=== PATIENT | female | born 1945 | race Caucasian/White ===

== ENCOUNTER → 2020-03-21 | Outpatient (REF) | payer MEDICARE ==
[2020-03-21 18:17] LABS: BASO # 0.1 10^3/uL (0.0-0.2); BASO % 0.9 % (0.0-1.0); EOS # 0.2 10^3/uL (0.0-0.5); EOS % 2.3 % (0.0-3.0); HEMATOCRIT 43.8 % (36.0-47.0); HEMOGLOBIN 14.1 g/dl (12.0-15.5); LYMPH # 1.4 10^3/uL (1.5-5.0); LYMPH % 20.3 % (24.0-44.0); MEAN CORPUSCULAR HEMOGLOBIN 30.5 pg (27.0-33.0); MEAN CORPUSCULAR HGB CONC 32.2 g/dl (32.0-36.5); MEAN CORPUSCULAR VOLUME 94.8 fl (80.0-96.0); MONO # 0.5 10^3/uL (0.0-0.8); NEUTROPHILS # 4.9 10^3/uL (1.5-8.5); NEUTROPHILS % 69.2 % (36.0-66.0); PLATELET COUNT, AUTOMATED 212 10^3/uL (150-450); RED BLOOD COUNT 4.62 10^6/uL (4.00-5.40)
[2020-03-21 18:40] LABS: ALBUMIN 3.9 GM/DL (3.2-5.2); ALT/SGPT 39 U/L (12-78); BILIRUBIN,TOTAL 0.5 MG/DL (0.2-1.0); BLOOD UREA NITROGEN 8 MG/DL (7-18); CALCIUM LEVEL 9.8 MG/DL (8.8-10.2); CARBON DIOXIDE LEVEL 26 MEQ/L (21-32); CHLORIDE LEVEL 110 MEQ/L (98-107); CREATININE FOR GFR 0.59 MG/DL (0.55-1.30); GLOMERULAR FILTRATION RATE > 60.0 (>39); GLUCOSE, FASTING 90 MG/DL (70-100); POTASSIUM SERUM 4.1 MEQ/L (3.5-5.1); RHEUMATOID FACTOR QUANT < 10.0 IU/ML (<15.0); SODIUM LEVEL 143 MEQ/L (136-145); TOTAL PROTEIN 6.8 GM/DL (6.4-8.2)
[2020-03-21 19:03] LABS: ERYTHROCYTE SEDIMENTATION RATE 19 mm/hr (0-30)
== END ==
LOC: M LAB REF 17:12
PROVIDERS: ATTEND Internal Medicine Pulmonary Disease
DX: J84.9 Interstitial pulmonary disease, unspecified (principal)

== ENCOUNTER → 2020-03-30 | Outpatient (CLI) | payer MEDICARE, OTHER ==
--- NOTE | 2020-03-30 16:38 | REP ---
INDICATION: INTERSTITIAL LUNG DISEASE, CT PROTOCOL. COMPARISON: None TECHNIQUE: Standard helical noncontrast enhanced CT examination of the chest along with inspiratory and expiratory supine and prone high-resolution CT imaging of the lungs. FINDINGS: There is no gross mediastinal or hilar adenopathy. No pleural or pericardial effusions. The ascending aorta has a maximal AP dimension of 4 cm. The imaged upper abdomen is unremarkable. The imaged osseous structures are within normal limits. There is biapical pleuroparenchymal scarring. There are scattered diffuse septal opacities. Heavy asymmetric densities are seen in the lung bases and seen in conjunction with early honeycomb lung formation in the periphery. The appearance of this is unchanged whether supine or prone, however, expert 0 reviews show increased density consistent with crowding. There is evidence of mild cylindrical bronchiectasis throughout. There are no abnormal ground-glass opacities. No significant pulmonary nodules are identified, however, some could be obscured by the aforementioned asymmetric densities particularly in the lung bases. IMPRESSION: Chronic lung field changes as described above. <Electronically signed by Josef Davison > 03/30/20 [id number]
== END ==
LOC: M RAD 13:53
PROVIDERS: ATTEND Internal Medicine Pulmonary Disease
DX: J84.9 Interstitial pulmonary disease, unspecified (principal); R91.8 Other nonspecific abnormal finding of lung field

== ENCOUNTER → 2020-11-23 | Outpatient (REF) | payer MEDICARE, OTHER ==
[2020-11-23 16:02] LABS: BASO # 0.1 10^3/uL (0.0-0.2); BASO % 0.8 % (0.0-1.0); EOS # 0.2 10^3/uL (0.0-0.5); EOS % 2.9 % (0.0-3.0); LYMPH # 1.5 10^3/uL (1.5-5.0); LYMPH % 20.4 % (24.0-44.0); MEAN CORPUSCULAR HEMOGLOBIN 29.2 pg (27.0-33.0); MEAN CORPUSCULAR HGB CONC 31.3 g/dl (32.0-36.5); MEAN CORPUSCULAR VOLUME 93.4 fl (80.0-96.0); MONO # 0.6 10^3/uL (0.0-0.8); MONO % 8.1 % (2.0-8.0); NEUTROPHILS # 4.8 10^3/uL (1.5-8.5); NEUTROPHILS % 67.4 % (36.0-66.0); PLATELET COUNT, AUTOMATED 239 10^3/uL (150-450); RED BLOOD COUNT 5.14 10^6/uL (4.00-5.40); WHITE BLOOD COUNT 7.1 10^3/uL (4.0-10.0)
[2020-11-23 16:10] LABS: APPEARANCE, URINE CLEAR (CLEAR); BACTERIA, URINE AUTO NEGATIVE (NEGATIVE); BILIRUBIN, URINE AUTO NEGATIVE (NEGATIVE); BLOOD, URINE BLOOD NEGATIVE (NEGATIVE); COLOR, URINE STRAW (YELLOW); GLUCOSE, URINE (UA) AUTO NEGATIVE (NEGATIVE); KETONE, URINE AUTO NEGATIVE (NEGATIVE); LEUKOCYTE ESTERASE, URINE AUTO TRACE (NEGATIVE); NITRITE, URINE AUTO NEGATIVE (NEGATIVE); PROTEIN, URINE AUTO NEGATIVE (NEGATIVE); RBC, URINE AUTO 0 /HPF (0-3); SPECIFIC GRAVITY URINE AUTO 1.003 (1.002-1.035); SQUAMOUS EPITHELIAL CELL UR AU 1 /HPF (0-6); UROBILINOGEN, URINE AUTO 0.2 mg/dL (0.0-2.0); WBC, URINE AUTO 0 /HPF (0-3)
[2020-11-23 16:24] LABS: CREATININE,RANDOM URINE 17.5 MG/DL; TOTAL PROTEIN,RANDOM URINE < 5.0 MG/DL (0.0-12.0)
[2020-11-23 16:29] LABS: ALBUMIN 3.5 GM/DL (3.2-5.2); ALT/SGPT 30 U/L (12-78); BILIRUBIN,DIRECT 0.1 MG/DL (0.0-0.2); BILIRUBIN,TOTAL 0.5 MG/DL (0.2-1.0); BLOOD UREA NITROGEN 14 MG/DL (7-18); CALCIUM LEVEL 9.7 MG/DL (8.8-10.2); CARBON DIOXIDE LEVEL 28 MEQ/L (21-32); CHLORIDE LEVEL 107 MEQ/L (98-107); COMPLEMENT C3 120 MG/DL (90-180); COMPLEMENT C4 22 MG/DL (10-40); CPK CREATINE PHOSPHOKINASE 94 U/L (26-192); CREATININE FOR GFR 0.75 MG/DL (0.55-1.30); GLOMERULAR FILTRATION RATE > 60.0 (>39); GLUCOSE, FASTING 71 MG/DL (70-100); IRON (FE) 92 UG/DL (50-170); MAGNESIUM LEVEL 2.2 MG/DL (1.8-2.4); PHOSPHORUS LEVEL 3.6 MG/DL (2.5-4.9); POTASSIUM SERUM 4.5 MEQ/L (3.5-5.1); SODIUM LEVEL 139 MEQ/L (136-145); TOTAL PROTEIN 7.1 GM/DL (6.4-8.2)
[2020-11-23 16:57] LABS: VITAMIN B12 LEVEL > 2000 PG/ML (247-911)
[2020-11-23 17:34] LABS: ERYTHROCYTE SEDIMENTATION RATE 4 mm/hr (0-30)
[2020-11-24 11:52] LABS: DRVV SCREEN 37.8 SEC
== END ==
LOC: M SFHCRHEU 10:58
PROVIDERS: ATTEND Internal Medicine
DX: Z01.89 Encounter for other specified special examinations (principal); R76.8 Other specified abnormal immunological findings in serum; M79.10 Myalgia, unspecified site; Z79.899 Other long term (current) drug therapy

== ENCOUNTER → 2021-03-28 | Outpatient (REF) | payer MEDICARE, OTHER | LOC: M LAB REF 16:23 | PROVIDERS: ATTEND Otolaryngology | DX: K11.7 Disturbances of salivary secretion (principal) ==

== ENCOUNTER → 2021-04-02 | Outpatient (CLI) | payer MEDICARE, OTHER | LOC: M PLAIMG 13:42 | PROVIDERS: ATTEND Internal Medicine Pulmonary Disease | DX: J84.9 Interstitial pulmonary disease, unspecified (principal) ==

== ENCOUNTER → 2021-04-30 | Outpatient (REF) | payer MEDICARE, OTHER | LOC: M SFHCRHEU 13:13 | PROVIDERS: ATTEND Internal Medicine | DX: E67.8 Other specified hyperalimentation (principal) ==

== ENCOUNTER → 2021-10-11 | Outpatient (REF) | payer MEDICARE, OTHER ==
[2021-10-11 18:01] LABS: TOTAL 25(OH) VITAMIN D 59.4 NG/ML (30.0-100.0)
== END ==
LOC: M SFHCRHEU 13:39
PROVIDERS: ATTEND Internal Medicine
DX: E67.8 Other specified hyperalimentation (principal); M79.10 Myalgia, unspecified site

== ENCOUNTER → 2022-04-09 | Outpatient (REF) | payer MEDICARE, OTHER ==
[2022-04-09 16:58] LABS: C REACTIVE PROTEIN QUANTITATIV < 0.40 MG/DL (<1.0)
[2022-04-09 16:59] LABS: COMPLEMENT C3 129.9 MG/DL (90.0-170.0); COMPLEMENT C4 27.6 MG/DL (12-36)
[2022-04-09 17:00] LABS: TOTAL 25(OH) VITAMIN D 49.9 NG/ML (20.0-100.0); VITAMIN B12 LEVEL 602 PG/ML (211-911)
[2022-04-09 17:19] LABS: CREATININE,RANDOM URINE 32.4 MG/DL
[2022-04-09 17:20] LABS: TOTAL PROTEIN,RANDOM URINE < 6.0 MG/DL (0.0-14.0)
[2022-04-09 19:25] LABS: APPEARANCE, URINE MANUAL CLEAR (CLEAR); BILIRUBIN, URINE MANUAL NEGATIVE (NEGATIVE); COLOR, URINE MANUAL LT YELLOW (YELLOW); GLUCOSE, URINE (UA) MANUAL NEGATIVE (NEGATIVE); KETONE, URINE MANUAL NEGATIVE (NEGATIVE); NITRITE, URINE MANUAL NEGATIVE (NEGATIVE); PH,URINE MAN 5.5 UNITS (5.0 - 7.0); PROTEIN, URINE MANUAL NEGATIVE (NEGATIVE); UROBILINOGEN, URINE MANUAL NORMAL (NORMAL)
[2022-04-09 19:26] LABS: BLOOD URINE MANUAL NEGATIVE (NEGATIVE); LEUKOCYTE ESTERASE, URINE MAN NEGATIVE (NEGATIVE)
== END ==
LOC: M SFHCRHEU 13:09
PROVIDERS: ATTEND Internal Medicine
DX: E67.8 Other specified hyperalimentation (principal); M79.10 Myalgia, unspecified site; M25.48 Effusion, other site; R76.8 Other specified abnormal immunological findings in serum

== ENCOUNTER → 2022-05-02 | Outpatient (CLI) | payer MEDICARE, OTHER | LOC: M PLAIMG 12:01 | PROVIDERS: ATTEND Internal Medicine Pulmonary Disease | DX: J84.9 Interstitial pulmonary disease, unspecified (principal) ==

== ENCOUNTER → 2022-11-07 | Outpatient (CLI) | payer MEDICARE | LOC: M CARPUL 10:36 | PROVIDERS: ATTEND Internal Medicine Pulmonary Disease | DX: J84.9 Interstitial pulmonary disease, unspecified (principal) ==

== ENCOUNTER → 2023-12-29 | Outpatient (REF) | payer MEDICARE, OTHER | LOC: M SFHCDERM 08:07 | PROVIDERS: ATTEND Physician Assistant | DX: L82.0 Inflamed seborrheic keratosis (principal) ==

== ENCOUNTER → 2024-04-13 | Outpatient (REF) | payer MEDICARE, OTHER ==
[2024-04-13 17:42] LABS: APPEARANCE, URINE CLEAR (CLEAR); BACTERIA, URINE AUTO NEGATIVE (NEGATIVE); BILIRUBIN, URINE AUTO NEGATIVE (NEGATIVE); BLOOD, URINE BLOOD NEGATIVE (NEGATIVE); COLOR, URINE YELLOW (YELLOW); GLUCOSE, URINE (UA) AUTO NEGATIVE (NEGATIVE); KETONE, URINE AUTO NEGATIVE (NEGATIVE); LEUKOCYTE ESTERASE, URINE AUTO NEGATIVE (NEGATIVE); NITRITE, URINE AUTO NEGATIVE (NEGATIVE); PROTEIN, URINE AUTO NEGATIVE (NEGATIVE); RBC, URINE AUTO 0 /HPF (0-3); SPECIFIC GRAVITY URINE AUTO 1.006 (1.002-1.035); SQUAMOUS EPITHELIAL CELL UR AU 1 /HPF (0-6); UROBILINOGEN, URINE AUTO 0.2 mg/dL (0.0-2.0); WBC, URINE AUTO 1 /HPF (0-3)
[2024-04-13 18:07] LABS: BASO # 0.1 10^3/uL (0.0-0.2); BASO % 0.6 % (0.0-1.0); EOS # 0.1 10^3/uL (0.0-0.5); EOS % 1.1 % (0.0-3.0); HEMATOCRIT 51.2 % (36.0-47.0); HEMOGLOBIN 16.1 g/dl (12.0-15.5); LYMPH # 2.2 10^3/uL (1.5-5.0); LYMPH % 21.3 % (24.0-44.0); MEAN CORPUSCULAR HGB CONC 31.4 g/dl (32.0-36.5); MEAN CORPUSCULAR VOLUME 95.3 fl (80.0-96.0); MONO # 0.7 10^3/uL (0.0-0.8); MONO % 6.4 % (2.0-8.0); NEUTROPHILS # 7.3 10^3/uL (1.5-8.5); NEUTROPHILS % 70.1 % (36.0-66.0); PLATELET COUNT, AUTOMATED 285 10^3/uL (150-450); RED BLOOD COUNT 5.37 10^6/uL (4.00-5.40); WHITE BLOOD COUNT 10.4 10^3/uL (4.0-10.0)
[2024-04-13 18:26] LABS: ERYTHROCYTE SEDIMENTATION RATE 35 mm/hr (0-30)
[2024-04-13 18:29] LABS: CREATININE,RANDOM URINE 31.7 MG/DL
[2024-04-13 18:30] LABS: TOTAL PROTEIN,RANDOM URINE < 6.0 MG/DL (0.0-14.0)
[2024-04-13 18:49] LABS: C REACTIVE PROTEIN QUANTITATIV 1.02 MG/DL (<1.0); VITAMIN B12 LEVEL 409 PG/ML (211-911)
[2024-04-13 18:50] LABS: ALKALINE PHOSPHATASE 101 U/L (35-104); ALT/SGPT 29 U/L (7.0-40); AST/SGOT 28 U/L (<34); BILIRUBIN,DIRECT 0.2 MG/DL (<0.4); BILIRUBIN,TOTAL 0.7 MG/DL (0.3-1.2); BLOOD UREA NITROGEN 12 MG/DL (9-23); CALCIUM LEVEL 10.2 MG/DL (8.3-10.6); CARBON DIOXIDE LEVEL 26 MMOL/L (20-31); CHLORIDE LEVEL 106 MMOL/L (98-107); COMPLEMENT C3 146.8 MG/DL (90.0-170.0); COMPLEMENT C4 26.8 MG/DL (12-36); CREATININE FOR GFR 0.67 MG/DL (0.55-1.30); GLOMERULAR FILTRATION RATE > 60.0 (>39); GLUCOSE, FASTING 77 MG/DL (74-106); POTASSIUM SERUM 4.2 MMOL/L (3.5-5.1); SODIUM LEVEL 143 MMOL/L (136-145); TOTAL 25(OH) VITAMIN D 53.5 NG/ML (20.0-100.0); TOTAL PROTEIN 7.5 G/DL (5.7-8.2)
== END ==
LOC: M SFHCRHEU 12:00
PROVIDERS: ATTEND Internal Medicine
DX: M34.9 Systemic sclerosis, unspecified (principal); E55.9 Vitamin D deficiency, unspecified; E67.8 Other specified hyperalimentation

== ENCOUNTER → 2024-09-09 | Outpatient (CLI) | payer MEDICARE, OTHER ==
[~2024-09-09] MED LIST: AMLO2.5T3 PO; ASPI81CH33 PO; ATOR1TAB21; ATOR40TA75 PO; COQ150CH PO; GNP1000C11 PO; LATANOPROST; LOSA50TA28 PO; NOXI1TAB PO; VITA-243 PO
== END ==
LOC: M ONCR 14:45
PROVIDERS: ATTEND General Practice
DX: C21.0 Malignant neoplasm of anus, unspecified (principal); Z85.72 Personal history of non-Hodgkin lymphomas; Z92.21 Personal history of antineoplastic chemotherapy; Z92.3 Personal history of irradiation; Z86.16 Personal history of COVID-19; Z80.3 Family history of malignant neoplasm of breast; Z87.891 Personal history of nicotine dependence; Z79.899 Other long term (current) drug therapy

== ENCOUNTER → 2024-09-23 | Outpatient (CLI) | payer MEDICARE, OTHER ==
[~2024-09-23] VITALS: Ht 170.2 cm; Wt 63.6 kg
[~2024-09-23] MED LIST changes: -ATOR1TAB21; +ATOR1TAB21 PO; +ONDA-84 PO; +PROC10TA5 PO; +VITA100016 PO; +XALA0.007 OU
[2024-09-23 13:15] VITALS: TEMP 97.5
[2024-09-23] MEDS: ceFAZolin SODIUM 2 GM in DEXTROSE 5% (D5W) ADV/MINI-BAG 50 ML IV ONE (14:05)
[2024-09-23] MEDS: NS (Normal Saline) 0.9% 1,000 ML IV SCH (14:05)
[2024-09-23] MEDS: MIDAZOLAM INJ 2 MG/2 ML VIAL IV PRN (14:30)
[2024-09-23] MEDS: LIDOCAINE 1% MDV 20 ML VIAL SC SCH (15:01)
[2024-09-23 15:30] VITALS: BP 178/84; O2SAT 95
== END ==
LOC: M IRPRO 12:58
PROVIDERS: ATTEND General Practice
DX: C21.0 Malignant neoplasm of anus, unspecified (principal)
CPT/HCPCS: 36561; 99152; J0690; J1642; J2250; J3010

== ENCOUNTER → 2024-09-30 | Outpatient (RCR) | payer MEDICARE, OTHER ==
[~2024-09-30] MED LIST changes: +LIDO100S29 SSP
== END ==
LOC: M ONCR 09-21 10:06
PROVIDERS: ATTEND General Practice
DX: Z51.0 Encounter for antineoplastic radiation therapy (principal); C21.0 Malignant neoplasm of anus, unspecified

== ENCOUNTER 2024-10-29 11:43 | Outpatient (RCR) | payer MEDICARE, OTHER ==
[2024-11-02] MEDS ORDERED: LEVO1TAB40 PO (14:01)
[2024-11-02] MEDS ORDERED: OXYC-517 PO (14:02)
== END 2024-10-31 ==
LOC: M ONCR 11:43
PROVIDERS: ATTEND General Practice
DX: Z51.0 Encounter for antineoplastic radiation therapy (principal); C21.0 Malignant neoplasm of anus, unspecified

== ENCOUNTER 2024-11-10 12:44 | Outpatient (RCR) | payer MEDICARE, OTHER ==
[2024-11-02 14:41] LABS: AMORPHOUS SEDIMENT SMALL (NEGATIVE); APPEARANCE, URINE CLOUDY (CLEAR); BACTERIA, URINE AUTO 1+ (NEGATIVE); BILIRUBIN, URINE AUTO NEGATIVE (NEGATIVE); BLOOD, URINE BLOOD NEGATIVE (NEGATIVE); GLUCOSE, URINE (UA) AUTO NEGATIVE (NEGATIVE); KETONE, URINE AUTO NEGATIVE (NEGATIVE); LEUKOCYTE ESTERASE, URINE AUTO 3+ (NEGATIVE); MUCUS, URINE LARGE (NEGATIVE); NITRITE, URINE AUTO NEGATIVE (NEGATIVE); PROTEIN, URINE AUTO NEGATIVE (NEGATIVE); RBC, URINE AUTO 11 /HPF (0-3); SPECIFIC GRAVITY URINE AUTO 1.010 (1.002-1.035); SQUAMOUS EPITHELIAL CELL UR AU 0 /HPF (0-6); UROBILINOGEN, URINE AUTO 0.2 mg/dL (0.0-2.0); WBC, URINE AUTO 92 /HPF (0-3)
[2024-11-09 14:37] LABS: PLATELET COUNT, AUTOMATED 57 10^3/uL (150-450)
[~2024-11-10 12:44] MED LIST changes: +LEVO1TAB40 PO; +OXYC-517 PO
== END 2024-11-30 ==
LOC: M ONCR 12:44
PROVIDERS: ATTEND General Practice
DX: Z51.0 Encounter for antineoplastic radiation therapy (principal); C21.0 Malignant neoplasm of anus, unspecified

== ENCOUNTER → 2024-12-31 | Outpatient (CLI) | payer MEDICARE, OTHER | LOC: M ONCR 14:47 | PROVIDERS: ATTEND General Practice | DX: C21.0 Malignant neoplasm of anus, unspecified (principal); K64.9 Unspecified hemorrhoids ==

== ENCOUNTER → 2025-02-09 | Outpatient (CLI) | payer MEDICARE, OTHER ==
[~2025-02-09] MED LIST changes: +ASPE4PAD TOP; +ASPI81TA26 PO; +BENA25CA4 PO; +BENZ-18 PO; +CEFD300CAP PO; +CO Q50CA8 PO; +ELIQ5TAB PO; +FLON1SPR; +HYDR2.5C TOP; +ISOVUE-370 76% 100 ML VIAL As Ordered ONE; +LOSA25TA13 PO; +METO1TAB87 PO; +MUCI600T31 PO; +PRED50TA57 PO; +VALA1TAB5; +VENTAER INH
== END ==
LOC: M RAD 09:33
PROVIDERS: ATTEND General Practice
DX: C21.0 Malignant neoplasm of anus, unspecified (principal); R93.2 Abnormal findings on diagnostic imaging of liver and biliary tract
CPT/HCPCS: 74177; 82565; Q9967

== ENCOUNTER → 2025-02-10 | Outpatient (CLI) | payer MEDICARE, OTHER ==
[~2025-02-10] MED LIST changes: -ASPE4PAD TOP; -ASPI81TA26 PO; -BENZ-18 PO; -CEFD300CAP PO; -CO Q50CA8 PO; -ELIQ5TAB PO; -FLON1SPR; -HYDR2.5C TOP; -ISOVUE-370 76% 100 ML VIAL As Ordered ONE; -LOSA25TA13 PO; -METO1TAB87 PO; -MUCI600T31 PO; -VALA1TAB5; -VENTAER INH
== END ==
LOC: M ONCR 13:38
PROVIDERS: ATTEND General Practice
DX: R93.2 Abnormal findings on diagnostic imaging of liver and biliary tract (principal); I73.00 Raynaud's syndrome without gangrene; M34.9 Systemic sclerosis, unspecified; J84.112 Idiopathic pulmonary fibrosis

== ENCOUNTER 2025-02-18 11:54 | Inpatient (IN) | payer MEDICARE, OTHER ==
[~2025-02-18] VITALS: Ht 170.2 cm; Wt 56.6 kg
[2025-02-18] MEDS: HEPARIN LOCK FLUSH 100 UNITS/ML 3 ML SYRINGE IV ONE (12:25)
[2025-02-18] MEDS ORDERED: SODIUM CHLORIDE 0.9% INJ 10 ML SYR IV PRN (12:25)
[2025-02-18] MEDS: NS 500 ML IV ONE (13:06)
[2025-02-18 13:27] LABS: BASO # 0.1 10^3/uL (0.0-0.2); BASO % 0.4 % (0.0-1.0); EOS # 0.0 10^3/uL (0.0-0.5); EOS % 0.2 % (0.0-3.0); LYMPH # 0.5 10^3/uL (1.5-5.0); LYMPH % 3.6 % (24.0-44.0); MONO # 1.0 10^3/uL (0.0-0.8); MONO % 6.9 % (2.0-8.0); NEUTROPHILS # 12.2 10^3/uL (1.5-8.5); NEUTROPHILS % 87.2 % (36.0-66.0); PLATELET COUNT, AUTOMATED 299 10^3/uL (150-450)
[2025-02-18] MEDS: ACETAMINOPHEN 325 MG TAB PO ONE (13:32)
[2025-02-18] MEDS: diphenhydrAMINE 50 MG/ML VIAL IV STA (13:32)
[2025-02-18] MEDS: SODIUM CHLORIDE 0.9% INJ 10 ML SYR IV SCH (13:35)
[2025-02-18 13:43] LABS: ALT/SGPT 56 U/L (7.0-40); AST/SGOT 46 U/L (<34); CALCIUM LEVEL 8.8 MG/DL (8.3-10.6); CARBON DIOXIDE LEVEL 25 MMOL/L (20-31); CHLORIDE LEVEL 106 MMOL/L (98-107); CREATININE FOR GFR 0.54 MG/DL (0.55-1.30); GLOMERULAR FILTRATION RATE > 90.0 (>39); POTASSIUM SERUM 3.7 MMOL/L (3.5-5.1); SODIUM LEVEL 142 MMOL/L (136-145)
[2025-02-18 13:45] LABS: THYROXINE (T4) 7.7 UG/DL (4.5-10.9)
[2025-02-18] MEDS ORDERED: ISOVUE-370 76% 100 ML VIAL As Ordered ONE (14:17)
[2025-02-18] MEDS: METOPROLOL 5 MG/5 ML VIAL IV SCH (14:56)
[2025-02-18] MEDS: IBUPROFEN 600 MG TAB PO ONE (14:56)
[2025-02-18] MEDS: cefTRIAXone SOD 2 GM in DEXTROSE 5% (D5W) ADV/MINI-BAG 50 ML IV ONE (15:27)
[2025-02-18] MEDS ORDERED: VENTAER INH (15:42)
[2025-02-18] MEDS ORDERED: CO Q50CA8 PO (15:42)
[2025-02-18] MEDS ORDERED: ASPE4PAD TOP (15:42)
[2025-02-18] MEDS ORDERED: LOSA25TA13 PO (15:42)
[2025-02-18] MEDS ORDERED: ASPI81TA26 PO (15:42)
[2025-02-18] MEDS ORDERED: HOME MED LIST COMPLETE! XX SCH (15:45)
[2025-02-18] MEDS ORDERED: ONDANSETRON 4MG/2ML VIAL IV PRN (16:50)
[2025-02-18] MEDS: NS (Normal Saline) 0.9% 1,000 ML IV SCH (17:08)
[2025-02-18] MEDS: MIDAZOLAM INJ 2 MG/2 ML VIAL IV PRN (17:08)
[2025-02-18] MEDS: LIDOCAINE 1% MDV 20 ML VIAL SC SCH (17:08)
[2025-02-18] MEDS ORDERED: MORPHINE 2 MG/ML 1 ML VIAL IV PRN (17:30)
[2025-02-18] MEDS ORDERED: ALBUTEROL SULFATE 2.5 MG/0.5 ML INH CONCENTRATE NEB SOLN NEB PRN (17:30)
[2025-02-18] MEDS: AZITHROMYCIN INJ 500 MG, VIAL MATE ADAPTER 1 EACH in D5W 250 ML IV ONE (18:01)
[2025-02-18 20:23] VITALS: BP 108/70; TEMP 97.3; O2SAT 92
[2025-02-18] MEDS: CO-ENZYME Q10 50 MG CAP PO SCH (21:53)
[2025-02-18] MEDS: ASPIRIN 81 MG ENTERIC TABLET PO SCH (21:53)
[2025-02-18] MEDS: ASCORBIC ACID 500 MG TAB PO SCH (21:53)
[2025-02-18] MEDS: LOSARTAN 25 MG TAB PO SCH (21:54)
[2025-02-18] MEDS: ATORVASTATIN 20 MG TAB PO SCH (21:54)
[2025-02-18] MEDS: LATANOPROST 0.005% OPHTH SOLN 2.5 ML OU SCH (21:55)
[2025-02-18] MEDS: VITAMIN D 1,000 INTERNATIONAL UNITS TABLET PO SCH (22:00)
[2025-02-18 23:37] VITALS: BP 102/66; TEMP 98.2; O2SAT 93
[2025-02-19] VITALS (8 sets, daily range): BP systolic 106–148; BP diastolic 57–88; TEMP 97.5–98.5; O2SAT 90–94
[2025-02-19] MEDS: METOPROLOL 5 MG/5 ML VIAL IV PRN (05:07)
[2025-02-19 06:01] LABS: PLATELET COUNT, AUTOMATED 288 10^3/uL (150-450)
[2025-02-19 06:31] LABS: ALT/SGPT 41 U/L (7.0-40); AST/SGOT 23 U/L (<34); CALCIUM LEVEL 8.5 MG/DL (8.3-10.6); CARBON DIOXIDE LEVEL 24 MMOL/L (20-31); CHLORIDE LEVEL 110 MMOL/L (98-107); CREATININE FOR GFR 0.49 MG/DL (0.55-1.30); GLOMERULAR FILTRATION RATE > 90.0 (>39); POTASSIUM SERUM 3.9 MMOL/L (3.5-5.1); SODIUM LEVEL 145 MMOL/L (136-145)
[2025-02-19] MEDS: AZITHROMYCIN 250 MG TABLET PO SCH (09:37)
[2025-02-19] MEDS: ACETAMINOPHEN 325 MG TAB PO PRN (09:38)
[2025-02-19] MEDS: SODIUM CHLORIDE 0.9% INJ 10 ML SYR IV SCH (09:39)
[2025-02-19] MEDS: cefTRIAXone SOD 1 GM in DEXTROSE 5% (D5W) ADV/MINI-BAG 50 ML IV SCH (12:12)
[2025-02-19] MEDS: LEVALBUTEROL 1.25 MG 0.5ML CONCENTRATE NEB INH PRN (20:27)
[2025-02-19] MEDS: guaiFENesin ER TABLET 600 MG TAB PO SCH (20:31)
[2025-02-19] MEDS: FLUTICASONE PROPIONATE 0.05% NASAL SPRAY 16 GM NARES SCH (20:32)
[2025-02-19] MEDS: BENZONATATE 100 MG CAPSULE PO PRN (21:28)
[2025-02-20] VITALS (7 sets, daily range): BP systolic 114–172; BP diastolic 63–90; TEMP 97.2–99.1; O2SAT 92–95
[2025-02-20 06:28] LABS: PLATELET COUNT, AUTOMATED 254 10^3/uL (150-450)
[2025-02-20 07:12] LABS: ALT/SGPT 34 U/L (7.0-40); AST/SGOT 24 U/L (<34); CALCIUM LEVEL 8.5 MG/DL (8.3-10.6); CARBON DIOXIDE LEVEL 27 MMOL/L (20-31); CHLORIDE LEVEL 110 MMOL/L (98-107); CREATININE FOR GFR 0.53 MG/DL (0.55-1.30); GLOMERULAR FILTRATION RATE > 90.0 (>39); MAGNESIUM LEVEL 2.0 MG/DL (1.8-2.4); POTASSIUM SERUM 4.0 MMOL/L (3.5-5.1); SODIUM LEVEL 145 MMOL/L (136-145)
[2025-02-20] MEDS: SODIUM CHLORIDE 0.9% 3 ML NEB SOLUTION FOR INHALATION INH SCH (08:21)
[2025-02-20] MEDS: METOPROLOL 5 MG/5 ML VIAL IV ONE (09:18)
[2025-02-20] MEDS: LORazepam 1 MG TAB PO PRN (15:16)
[2025-02-21] VITALS (17 sets, daily range): BP systolic 100–151; BP diastolic 55–90; TEMP 97–100.4; O2SAT 9–97
[2025-02-21 05:52] LABS: PLATELET COUNT, AUTOMATED 245 10^3/uL (150-450)
[2025-02-21 06:13] LABS: ALT/SGPT 28 U/L (7.0-40); AST/SGOT 17 U/L (<34); CALCIUM LEVEL 8.5 MG/DL (8.3-10.6); CARBON DIOXIDE LEVEL 29 MMOL/L (20-31); CHLORIDE LEVEL 107 MMOL/L (98-107); CREATININE FOR GFR 0.47 MG/DL (0.55-1.30); GLOMERULAR FILTRATION RATE > 90.0 (>39); MAGNESIUM LEVEL 2.2 MG/DL (1.8-2.4); POTASSIUM SERUM 4.1 MMOL/L (3.5-5.1); SODIUM LEVEL 143 MMOL/L (136-145)
[2025-02-21] MEDS: METOPROLOL 5 MG/5 ML VIAL IV STA (16:25)
[2025-02-21] MEDS: METOPROLOL TART 25 MG TABLET PO SCH (21:00)
[2025-02-22] VITALS (8 sets, daily range): BP systolic 102–123; BP diastolic 57–72; TEMP 97–100.7; O2SAT 75–98
[2025-02-22 06:17] LABS: PLATELET COUNT, AUTOMATED 234 10^3/uL (150-450)
[2025-02-22 06:53] LABS: ALT/SGPT 37 U/L (7.0-40); AST/SGOT 32 U/L (<34); CALCIUM LEVEL 8.5 MG/DL (8.3-10.6); CARBON DIOXIDE LEVEL 28 MMOL/L (20-31); CHLORIDE LEVEL 108 MMOL/L (98-107); CREATININE FOR GFR 0.52 MG/DL (0.55-1.30); GLOMERULAR FILTRATION RATE > 90.0 (>39); MAGNESIUM LEVEL 2.2 MG/DL (1.8-2.4); POTASSIUM SERUM 4.1 MMOL/L (3.5-5.1); SODIUM LEVEL 144 MMOL/L (136-145)
[2025-02-22] MEDS: ENOXAPARIN 40 MG/0.4 ML SYRINGE (J1650 PER 10MG) SC SCH (15:40)
[2025-02-22] MEDS: ACETAMINOPHEN *IV* 1,000 MG in IV 1 EA IV ONE (17:46)
[2025-02-23] VITALS (9 sets, daily range): BP systolic 102–133; BP diastolic 58–69; TEMP 97–101; O2SAT 92–99
[2025-02-23 05:34] LABS: PLATELET COUNT, AUTOMATED 233 10^3/uL (150-450)
[2025-02-23 06:05] LABS: ALT/SGPT 45 U/L (7.0-40); AST/SGOT 37 U/L (<34); CALCIUM LEVEL 8.6 MG/DL (8.3-10.6); CARBON DIOXIDE LEVEL 31 MMOL/L (20-31); CHLORIDE LEVEL 107 MMOL/L (98-107); CREATININE FOR GFR 0.45 MG/DL (0.55-1.30); GLOMERULAR FILTRATION RATE > 90.0 (>39); MAGNESIUM LEVEL 2.1 MG/DL (1.8-2.4); POTASSIUM SERUM 4.2 MMOL/L (3.5-5.1); SODIUM LEVEL 144 MMOL/L (136-145)
[2025-02-23] MEDS: CEFDINIR 300 MG CAP PO SCH (08:55)
[2025-02-23] MEDS: MAGIC MOUTHWASH 5 ML ORAL SYRINGE SS PRN (09:52)
[2025-02-23] MEDS ORDERED: MUCI600T31 PO (17:32)
[2025-02-23] MEDS ORDERED: BENZ-18 PO (17:32)
[2025-02-23] MEDS ORDERED: ELIQ5TAB PO (17:32)
[2025-02-23] MEDS ORDERED: METO1TAB87 PO (17:32)
[2025-02-23] MEDS ORDERED: CEFD300CAP PO (17:32)
[2025-02-23] MEDS: APIXABAN 5 MG TAB PO SCH (21:01)
[2025-02-24] MEDS ORDERED: APIXABAN 5 MG TAB PO SCH
[2025-02-24] MEDS ORDERED: METOPROLOL TART 25 MG TABLET PO SCH
[2025-02-24] MEDS ORDERED: guaiFENesin ER TABLET 600 MG TAB PO SCH
[2025-02-24] MEDS ORDERED: CEFDINIR 300 MG CAP PO SCH
[2025-02-24] MEDS ORDERED: BENZONATATE 100 MG CAPSULE PO SCH
[2025-02-24 03:48] VITALS: BP 117/63; TEMP 97.6; O2SAT 94
[2025-02-24 07:33] VITALS: BP 142/67; TEMP 97.7; O2SAT 92
[2025-02-24 08:02] VITALS: BP 142/67
== END 2025-02-24 14:10 | disposition home health service (06) | DRG 199 ==
LOC: M ED 11:54 → M ED INP 17:30 → M PCU 20:13
PROVIDERS: ADMIT Internal Medicine; ATTEND Internal Medicine
PROC: 0W9B3ZZ Drainage of Left Pleural Cavity, Percutaneous Approach (ICD-10-PCS; principal; 2025-02-18 16:00)
DX: J93.9 Pneumothorax, unspecified (principal); J18.9 Pneumonia, unspecified organism; C85.10 Unspecified B-cell lymphoma, unspecified site; J84.9 Interstitial pulmonary disease, unspecified; I10 Essential (primary) hypertension; E78.5 Hyperlipidemia, unspecified; I48.91 Unspecified atrial fibrillation; I73.00 Raynaud's syndrome without gangrene; Z86.73 Personal history of transient ischemic attack (TIA), and cerebral infarction without residual deficits; E55.9 Vitamin D deficiency, unspecified; I65.21 Occlusion and stenosis of right carotid artery; Z92.21 Personal history of antineoplastic chemotherapy; Z92.3 Personal history of irradiation; Z85.048 Personal history of other malignant neoplasm of rectum, rectosigmoid junction, and anus; I89.0 Lymphedema, not elsewhere classified; R91.1 Solitary pulmonary nodule; M34.9 Systemic sclerosis, unspecified; Z79.899 Other long term (current) drug therapy; Z79.82 Long term (current) use of aspirin; Z88.8 Allergy status to other drugs, medicaments and biological substances; Z91.041 Radiographic dye allergy status; F41.0 Panic disorder [episodic paroxysmal anxiety]

== ENCOUNTER → 2025-03-01 | Outpatient (CLI) | payer MEDICARE, OTHER ==
[~2025-03-01] MED LIST changes: +ASPE4PAD TOP; +ASPI81TA26 PO; +BENZ-18 PO; +CEFD300CAP PO; +CO Q50CA8 PO; +ELIQ5TAB PO; +FLON1SPR; +LOSA25TA13 PO; +METO1TAB87 PO; +MUCI600T31 PO; +VALA1TAB5; +VENTAER INH
== END ==
LOC: M PLALAB 14:55
PROVIDERS: ATTEND Internal Medicine Pulmonary Disease
DX: R91.8 Other nonspecific abnormal finding of lung field (principal); Z53.9 Procedure and treatment not carried out, unspecified reason

== ENCOUNTER → 2025-03-02 | Outpatient (CLI) | payer MEDICARE, OTHER | LOC: M PLALAB 11:29 | PROVIDERS: ATTEND Internal Medicine Pulmonary Disease | DX: R91.8 Other nonspecific abnormal finding of lung field (principal) ==